=== PATIENT | male | born 1945 | race Caucasian/White ===

== ENCOUNTER 2020-11-16 20:50 | Emergency (ER) | payer OTHER ==
[~2020-11-16 20:50] MED LIST: ADVAIR 500-501 EACH INH; ASPIRIN325 MG PO; ATROVENT (00.2 MG/ML INH; BACLOFEN 10MG T10 MG PO; BRETHINE5 MG PO; BUPROPION PO; CERTAGEN1 EACH PO; CIPROFLOXACIN2.5 ML EYEBOTH; CLEOCIN300 MG PO; COZAAR 100MG T100 MG PO; DEPAKOTE250 MG PO; DUONEB 2.5-0.5M1 AMP INH; ELIQUIS2.5 MG PO; GLUCOTROL10 MG PO; K-TAB ER20 MEQ PO; LASIX40 MG PO; LEVAQUIN750 MG PO; LYRICA 50MG CAP50 MG PO; METOPROLOL SUCC50 MG PO; MOBIC7.5 MG PO; NEURONTIN 400M400 MG PO; NITROQUIK SL0.4 MG SL; NORCO 10-325 T1 EACH PO; PAXIL40 MG PO; PRAVACHOL40 MG PO; PREDNISONE 10MG10 MG PO; PREDNISONE 20MG20 MG PO; SINGULAIR10 MG PO; SPIRIVA 185 PUFFS/IN INH; TOPROL XL 50 MG50 MG PO; TYLENOL325 M1 PO; VANCOMYCIN1000 MG/VI IV; VENTOLIN HFA IN18 GM INH; WELLBUTRIN75 MG PO
[2020-11-16 22:29] LABS: BASOPHIL 0.4 % (0-2); EOSINOPHIL 4.2 % (0-7); HCT 42.1 % (42.0-52.0); HGB 13.7 g/dl (13.2-18.0); LYMPHOCYTE 20.4 % (15-48); MCH 29.1 pg (25.0-31.0); MCHC 32.5 g/dL (32.0-36.0); MCV 89.6 fL (78.0-100.0); MONOCYTE 9.3 % (0-12); NEUTROPHIL 65.4 % (41-80); NRBC 0; PLT 286 K/uL (150-400); RDW 12.9 % (11.5-14.0)
[2020-11-16 22:39] LABS: ALBUMIN 3.6 g/dL (3.4-5.0); BILIRUBIN - TOTAL 0.4 mg/dL (0.2-1.0); BUN/CREAT RATIO (CALC) 10.5 RATIO; CREATININE 0.76 mg/dL (0.67-1.17); POTASSIUM 3.8 mmol/L (3.5-5.1); TOTAL PROTEIN 7.6 g/dL (6.4-8.2)
[2020-11-17 00:31] LABS: BILIRUBIN NEGATIVE (NEGATIVE); BLOOD NEGATIVE Ery/uL (NEGATIVE); CLARITY CLEAR (CLEAR); COLOR YELLOW (YELLOW); GLUCOSE (U) 2+ mg/dL (NORMAL); LEUKOCYTES NEGATIVE Leu/uL (NEGATIVE); NITRITE NEGATIVE (NEGATIVE); PROTEIN 2+ mg/dL (NEGATIVE); UROBILINOGEN 0.2 mg/dL (0.2-1.0)
[2020-11-17 00:35] LABS: SQUAMOUS EPITHELIAL CELLS RARE; URINARY RBC RARE
[2020-11-17] MEDS ORDERED: PROTONIX 40MG T40 MG PO (03:03)
[2020-11-17] MEDS ORDERED: ONDANSETRON ODT4 MG SL (03:03)
== END 2020-11-17 03:22 | disposition home or self-care (01) ==
LOC: FER 20:50
PROVIDERS: Emergency Medicine Emergency Medical Services
DX: R11.2 Nausea with vomiting, unspecified (principal); R19.7 Diarrhea, unspecified; E11.9 Type 2 diabetes mellitus without complications; I10 Essential (primary) hypertension; J44.9 Chronic obstructive pulmonary disease, unspecified; Z88.0 Allergy status to penicillin; Z88.5 Allergy status to narcotic agent
CPT/HCPCS: 36415; 80053; 81001; 82150; 83690; 85025; 87045; 87046; 87205; 87449; J1940; J2354; J2405; J7030; Q9967

== ENCOUNTER 2021-02-02 21:20 | Day surgery (SDCO) | payer OTHER ==
[~2021-02-02] VITALS: Ht 175.3 cm; Wt 117.6 kg
[~2021-02-02 21:20] MED LIST changes: +ONDANSETRON ODT4 MG SL; +PROTONIX 40MG T40 MG PO
[2021-02-02 21:58] LABS: BASOPHIL 0.4 % (0-2); EOSINOPHIL 4.4 % (0-7); HCT 40.7 % (42.0-52.0); HGB 12.9 g/dl (13.2-18.0); LYMPHOCYTE 23.4 % (15-48); MCH 28.7 pg (25.0-31.0); MCHC 31.7 g/dL (32.0-36.0); MCV 90.4 fL (78.0-100.0); MONOCYTE 10.4 % (0-12); MPV 9.5 fL (6.0-9.5); NRBC 0; PLT 263 K/uL (150-400); RDW 14.4 % (11.5-14.0); WBC 10.7 K/uL (4.0-10.5)
[2021-02-02 22:15] LABS: ALBUMIN 3.6 g/dL (3.4-5.0); ALKALINE PHOSHATASE 96 U/L (46-116); ALT 17 U/L (16-63); AST 14 U/L (15-37); BILIRUBIN - TOTAL 0.3 mg/dL (0.2-1.0); BUN 30 mg/dL (7-18); BUN/CREAT RATIO (CALC) 12.8 RATIO; CHLORIDE 102 mmol/L (98-107); CO2 (BICARBONATE) 28 mmol/L (21-32); CREATININE 2.34 mg/dL (0.67-1.17); GLOBULIN (CALCULATION) 3.8 g/dL; GLUCOSE 125 mg/dL (74-106); POTASSIUM 3.6 mmol/L (3.5-5.1); TOTAL PROTEIN 7.4 g/dL (6.4-8.2)
[2021-02-02 23:35] LABS: AMPHETAMINES NEGATIVE (NEGATIVE); BARBITURATES NEGATIVE (NEGATIVE); ECSTASY (MDMA) NEGATIVE (NEGATIVE); MARIJUANA (THC) NEGATIVE (NEGATIVE); METHADONE NEGATIVE (NEGATIVE); OPIATES NEGATIVE (NEGATIVE); OXYCODONE NEGATIVE (NEGATIVE)
[2021-02-03 00:29] LABS: BILIRUBIN NEGATIVE (NEGATIVE); BLOOD NEGATIVE Ery/uL (NEGATIVE); CLARITY CLEAR (CLEAR); COLOR YELLOW (YELLOW); GLUCOSE (U) 3+ mg/dL (NORMAL); LEUKOCYTES NEGATIVE Leu/uL (NEGATIVE); NITRITE NEGATIVE (NEGATIVE); PROTEIN TRACE (LOW) mg/dL (NEGATIVE); SPECIFIC GRAVITY 1.025 (1.001-1.030); UROBILINOGEN 0.2 mg/dL (0.2-1.0); pH 5.5 (5.0-9.0)
[2021-02-03 05:40] LABS: BASOPHIL 0.6 % (0-2); EOSINOPHIL 5.2 % (0-7); HCT 39.9 % (42.0-52.0); HGB 12.5 g/dl (13.2-18.0); LYMPHOCYTE 26.9 % (15-48); MCH 28.3 pg (25.0-31.0); MCHC 31.3 g/dL (32.0-36.0); MCV 90.3 fL (78.0-100.0); MONOCYTE 11.3 % (0-12); MPV 9.7 fL (6.0-9.5); NEUTROPHIL 55.7 % (41-80); NRBC 0; PLT 227 K/uL (150-400); RBC 4.42 M/uL (4.70-6.00); RDW 14.2 % (11.5-14.0)
[2021-02-03 06:08] LABS: BUN/CREAT RATIO (CALC) 15.7 RATIO; CREATININE 1.59 mg/dL (0.67-1.17); MAGNESIUM 1.5 mg/dL (1.8-2.4); POTASSIUM 3.8 mmol/L (3.5-5.1)
[2021-02-03] MEDS ORDERED: ELIQUIS5 MG PO (17:51)
[2021-02-03] MEDS ORDERED: ASPIRIN EC81 MG PO (17:52)
[2021-02-03] MEDS ORDERED: DIPROLENE 0.05%15 GM TOP (17:53)
[2021-02-03] MEDS ORDERED: COMBIVENT RESPIM4 GM INH (17:53)
[2021-02-03] MEDS ORDERED: GLYBURIDE 5MG TA5 MG PO (17:54)
[2021-02-03] MEDS ORDERED: BRETHINE PO (17:55)
[2021-02-03] MEDS ORDERED: WELLBUTRIN XL150 MG PO (17:56)
[2021-02-03] MEDS ORDERED: LANTUS **100 UNITS/ SC (17:57)
[2021-02-03] MEDS ORDERED: NORVASC5 MG PO (17:58)
[2021-02-03] MEDS ORDERED: COZAAR100 MG PO (17:59)
[2021-02-03] MEDS ORDERED: MULTIPLE VITAM1 EACH PO (18:00)
[2021-02-03] MEDS ORDERED: LYRICA200 MG PO (18:01)
[2021-02-03] MEDS ORDERED: VICODIN 10/3251 EACH PO (18:01)
[2021-02-03] MEDS ORDERED: VENTOLIN (2.5 MG/3 M INH (18:02)
[2021-02-03] MEDS ORDERED: SPIRIVA RESPIMAT4 G1 INH (18:04)
[2021-02-03] MEDS ORDERED: FLONASE ALLER15.8 ML (18:05)
[2021-02-03] MEDS ORDERED: SINGULAIR10 MG PO (18:05)
[2021-02-03] MEDS ORDERED: PULMICORT0.5 MG/2 M NEB (18:07)
[2021-02-03] MEDS ORDERED: NITROQUIK SL0.4 MG SL (18:08)
[2021-02-03] MEDS ORDERED: PROTONIX 40MG T40 MG PO (18:10)
[2021-02-03] MEDS ORDERED: IPRAT-ALBUT 0.5-3 ML INH (18:10)
[2021-02-03] MEDS ORDERED: PLAVIX75 MG PO (18:10)
[2021-02-03] MEDS ORDERED: LIPITOR40 M1 PO (18:11)
[2021-02-03] MEDS ORDERED: HCTZ12.5 MG PO (18:11)
[2021-02-03] MEDS ORDERED: RANEXA500 MG PO (18:13)
[2021-02-03] MEDS ORDERED: COLESTID1 GM PO (18:15)
[2021-02-03 20:36] LABS: HCT 41.7 % (42.0-52.0); HGB 12.9 g/dl (13.2-18.0); MCH 28.3 pg (25.0-31.0); MCHC 30.9 g/dL (32.0-36.0); MCV 91.4 fL (78.0-100.0); MPV 9.4 fL (6.0-9.5); RBC 4.56 M/uL (4.70-6.00); RDW 14.3 % (11.5-14.0); WBC 8.3 K/uL (4.0-10.5)
[2021-02-03 21:07] LABS: ALBUMIN 3.3 g/dL (3.4-5.0); BILIRUBIN - TOTAL 0.3 mg/dL (0.2-1.0); BUN/CREAT RATIO (CALC) 15.6 RATIO; CREATININE 0.96 mg/dL (0.67-1.17); MAGNESIUM 1.6 mg/dL (1.8-2.4); TOTAL PROTEIN 7.3 g/dL (6.4-8.2)
[2021-02-04 04:05] LABS: BASOPHIL 0.6 % (0-2); EOSINOPHIL 5.5 % (0-7); HGB 12.1 g/dl (13.2-18.0); LYMPHOCYTE 24.8 % (15-48); MCH 28.3 pg (25.0-31.0); MCV 91.3 fL (78.0-100.0); MONOCYTE 11.1 % (0-12); MPV 9.9 fL (6.0-9.5); NEUTROPHIL 57.9 % (41-80); NRBC 0; PLT 245 K/uL (150-400); RBC 4.27 M/uL (4.70-6.00); RDW 14.1 % (11.5-14.0); WBC 8.4 K/uL (4.0-10.5)
[2021-02-04 04:23] LABS: ALBUMIN 3.1 g/dL (3.4-5.0); BILIRUBIN - TOTAL 0.5 mg/dL (0.2-1.0); BUN/CREAT RATIO (CALC) 13.3 RATIO; CREATININE 0.83 mg/dL (0.67-1.17); GLOBULIN (CALCULATION) 3.8 g/dL; MAGNESIUM 1.7 mg/dL (1.8-2.4); PHOSPHORUS 2.7 mg/dL (2.6-4.7); POTASSIUM 3.6 mmol/L (3.5-5.1); TOTAL PROTEIN 6.9 g/dL (6.4-8.2)
[2021-02-05 04:17] LABS: BASOPHIL 0.5 % (0-2); EOSINOPHIL 3.9 % (0-7); HCT 37.5 % (42.0-52.0); LYMPHOCYTE 22.2 % (15-48); MCH 28.2 pg (25.0-31.0); MCV 88.2 fL (78.0-100.0); MONOCYTE 10.7 % (0-12); NEUTROPHIL 62.5 % (41-80); NRBC 0; PLT 249 K/uL (150-400); RBC 4.25 M/uL (4.70-6.00); RDW 13.6 % (11.5-14.0); WBC 8.5 K/uL (4.0-10.5)
[2021-02-05 04:36] LABS: BUN/CREAT RATIO (CALC) 11.5 RATIO; CREATININE 0.61 mg/dL (0.67-1.17); POTASSIUM 3.3 mmol/L (3.5-5.1)
--- NOTE | 2021-02-05 14:12 | NUR ---
Patient expressed wishes to go to rehab nursing facility to [place]. Spoke with patient, we does have walker at home, spouse who cannot help due to illness/weakness, and a grand daughter that is available to help. Explained therapy recommendations for [facility] with PT to patient. Patient still would like rehab, says he is afraid he will fall. Does not have a preference on facilities.
[2021-02-06 06:20] LABS: BASOPHIL 0.3 % (0-2); EOSINOPHIL 3.2 % (0-7); HCT 39.2 % (42.0-52.0); HGB 12.6 g/dl (13.2-18.0); LYMPHOCYTE 17.2 % (15-48); MCH 27.9 pg (25.0-31.0); MCHC 32.1 g/dL (32.0-36.0); MCV 86.9 fL (78.0-100.0); MONOCYTE 11.7 % (0-12); MPV 10.4 fL (6.0-9.5); NEUTROPHIL 67.4 % (41-80); NRBC 0; PLT 247 K/uL (150-400); RBC 4.51 M/uL (4.70-6.00); RDW 13.5 % (11.5-14.0)
[2021-02-06 06:51] LABS: BUN/CREAT RATIO (CALC) 10.8 RATIO; CREATININE 0.65 mg/dL (0.67-1.17); POTASSIUM 3.2 mmol/L (3.5-5.1)
[2021-02-06 14:26] LABS: FOLIC ACID (SERUM) 29.2 ng/mL (8.6-58.9); FT4 (FREE T4) 1.2 ng/dL (0.76-1.46)
--- NOTE | 2021-02-06 15:51 | NUR ---
02/06/21 Mr. Perrin shares a home with his granddaughter. He has a rw, 02, s. chair, and 3in1. He does not have HH services. His granddaughter cleaning and prepares meals. Mr. Perrin has request SNF for short term ronal.. Referrals have been made to [facility] and [facility] per his request.
--- NOTE | 2021-02-07 04:10 | NUR ---
Martha Ledezma APRN notified of bladder scan results of 555mL. No new orders at this time.
[2021-02-07 06:42] LABS: BUN/CREAT RATIO (CALC) 13.2 RATIO; CREATININE 1.29 mg/dL (0.67-1.17); MAGNESIUM 1.4 mg/dL (1.8-2.4); POTASSIUM 3.6 mmol/L (3.5-5.1)
--- NOTE | 2021-02-07 14:47 | NUR ---
9105 PATIENT HAS NOT VOIDED THIS SHIFT, PATIENT STATED HE DID NOT FEEL LIKE HE NEEDED TO VOID BUT WAS ABLE TO VOID 100 ML. BLADDER SCAN COMPLETED, 343 ML NOTED IN BLADDER. DR KELLEY NOTIFIED AND STATED "OK, WE'LL KEEP AN EYE ON IT."
[2021-02-07 15:01] LABS: BILIRUBIN 1+ mg/dL (NEGATIVE); BLOOD NEGATIVE Ery/uL (NEGATIVE); CLARITY CLEAR (CLEAR); GLUCOSE (U) 3+ mg/dL (NORMAL); LEUKOCYTES NEGATIVE Leu/uL (NEGATIVE); NITRITE NEGATIVE (NEGATIVE); PROTEIN 1+ mg/dL (NEGATIVE); SPECIFIC GRAVITY >=1.030 (1.001-1.030); UROBILINOGEN 0.2 mg/dL (0.2-1.0); pH 5.5 (5.0-9.0)
[2021-02-07 15:19] LABS: COLOR AMBER (YELLOW)
[2021-02-07 15:21] LABS: SQUAMOUS EPITHELIAL CELLS RARE
--- NOTE | 2021-02-07 15:47 | NUR ---
02/07/21 [facility] has accepted Mr. Perrin pending insurance approval.
[2021-02-08 06:59] LABS: BASOPHIL 0.6 % (0-2); EOSINOPHIL 3.6 % (0-7); HCT 37.6 % (42.0-52.0); HGB 12.2 g/dl (13.2-18.0); LYMPHOCYTE 18.2 % (15-48); MCH 28.2 pg (25.0-31.0); MCHC 32.4 g/dL (32.0-36.0); MONOCYTE 11.8 % (0-12); MPV 9.7 fL (6.0-9.5); NEUTROPHIL 65.4 % (41-80); NRBC 0; PLT 293 K/uL (150-400); RBC 4.32 M/uL (4.70-6.00); RDW 13.6 % (11.5-14.0)
[2021-02-08 07:17] LABS: BUN/CREAT RATIO (CALC) 20.9 RATIO; CREATININE 0.91 mg/dL (0.67-1.17); MAGNESIUM 1.7 mg/dL (1.8-2.4); POTASSIUM 3.5 mmol/L (3.5-5.1)
--- NOTE | 2021-02-08 16:53 | NUR ---
02/08/21 [facility] has approved patient for admission today. Tano, granddaughter, , has agreed to provide transportation. Report given to MS kodi Luna and Dr. Cunningham.
[2021-02-08] MEDS ORDERED: TAMSULOSIN HCL0.4 MG PO (18:01)
[2021-02-08] MEDS ORDERED: DOXYCYCLINE MO100 M1 PO (18:01)
--- NOTE | 2021-02-08 20:51 | NUR ---
2020 FAMILY MEMBER IN ROOM 203 REPORTED THAT HE WAS IN THE FLOOR. PATIENT FOUND SITTING IN THE FLOOR, DENIES ANY INJURY, NO INJURIES NOTED. DR. KELLEY AND Cassidy CRANE APRN NOTIFIED OF FALL, NEW ORDERS REC'D. GRANDDAUGHTER NOTIFIED.
== END 2021-02-08 11:00 ==
LOC: FER 21:20 → FMS 02-03 01:28
PROVIDERS: Emergency Medicine; Internal Medicine; Nurse Practitioner; ADMIT Internal Medicine
DX: G93.41 Metabolic encephalopathy (principal); N17.9 Acute kidney failure, unspecified; N40.1 Benign prostatic hyperplasia with lower urinary tract symptoms; R33.8 Other retention of urine; R53.1 Weakness; J44.9 Chronic obstructive pulmonary disease, unspecified; I10 Essential (primary) hypertension; I25.10 Atherosclerotic heart disease of native coronary artery without angina pectoris; E11.9 Type 2 diabetes mellitus without complications; G47.33 Obstructive sleep apnea (adult) (pediatric); E78.5 Hyperlipidemia, unspecified; Z88.0 Allergy status to penicillin; Z91.013 Allergy to seafood; Z91.012 Allergy to eggs; Z91.030 Bee allergy status; Z88.5 Allergy status to narcotic agent; Z99.81 Dependence on supplemental oxygen; Z20.822 Contact with and (suspected) exposure to COVID-19; Z86.73 Personal history of transient ischemic attack (TIA), and cerebral infarction without residual deficits; Z96.653 Presence of artificial knee joint, bilateral; Z90.49 Acquired absence of other specified parts of digestive tract; Z87.891 Personal history of nicotine dependence
CPT/HCPCS: 36415; 36600; 70450; 70551; 71045; 71250; 72072; 72110; 72170; 80048; 80053; 80305; 81001; 81003; 82607; 82746; 82803; 82962; 83540; 83550; 83605; 83735; 84100; 84145; 84439; 84443; 84484; 85025; 87088; 93005; 94640; 94660; 94760; 94762; 97116; 97161; 97166; 97530; 97530-GP; 97535; G0378; G0480; J1650; J2916; J3475; J7030; J7050; U0002

== ENCOUNTER 2021-05-11 01:49 | Inpatient (IN) | payer OTHER ==
[~2021-05-11] VITALS: Ht 175.3 cm; Wt 113.5 kg
[~2021-05-11 01:49] MED LIST changes: +ASPIRIN EC81 MG PO; +BRETHINE PO; +COLESTID1 GM PO; +COMBIVENT RESPIM4 GM INH; +COZAAR100 MG PO; +DIPROLENE 0.05%15 GM TOP; +DOXYCYCLINE MO100 M1 PO; +ELIQUIS5 MG PO; +FLONASE ALLER15.8 ML; +GLYBURIDE 5MG TA5 MG PO; +HCTZ12.5 MG PO; +IPRAT-ALBUT 0.5-3 ML INH; +LANTUS **100 UNITS/ SC; +LIPITOR40 M1 PO; +LYRICA200 MG PO; +MULTIPLE VITAM1 EACH PO; +NORVASC5 MG PO; +PLAVIX75 MG PO; +PULMICORT0.5 MG/2 M NEB; +RANEXA500 MG PO; +SPIRIVA RESPIMAT4 G1 INH; +TAMSULOSIN HCL0.4 MG PO; +VENTOLIN (2.5 MG/3 M INH; +VICODIN 10/3251 EACH PO; +WELLBUTRIN XL150 MG PO
[2021-05-11 02:52] LABS: BASOPHIL 0.5 % (0-2); EOSINOPHIL 1.9 % (0-7); HGB 10.2 g/dl (13.2-18.0); LYMPHOCYTE 27.2 % (15-48); MCH 28.7 pg (25.0-31.0); MCHC 31.9 g/dL (32.0-36.0); MCV 89.9 fL (78.0-100.0); MONOCYTE 9.9 % (0-12); MPV 10.6 fL (6.0-9.5); NRBC 0; PLT 289 K/uL (150-400); RBC 3.56 M/uL (4.70-6.00); RDW 13.2 % (11.5-14.0); WBC 9.2 K/uL (4.0-10.5)
[2021-05-11 02:57] LABS: INR 1.1 (0.9-1.2); PROTHROMBIN TIME 13.6 SECONDS (11.8-13.4); PTT 28.5 SECONDS (24.4-34.7)
[2021-05-11 02:58] LABS: D-DIMER 0.49 ug/mLFEU (0.00-0.41)
[2021-05-11 03:03] LABS: ALBUMIN 3.4 g/dL (3.4-5.0); BILIRUBIN - TOTAL 0.3 mg/dL (0.2-1.0); BUN/CREAT RATIO (CALC) 64.6 RATIO; CREATININE 0.99 mg/dL (0.67-1.17); GLOBULIN (CALCULATION) 4.1 g/dL; POTASSIUM 3.9 mmol/L (3.5-5.1); TOTAL PROTEIN 7.5 g/dL (6.4-8.2)
[2021-05-11 03:31] LABS: LACTIC ACID 1.2 mmol/L (0.4-1.9)
[2021-05-11 05:59] LABS: HGB 9.3 g/dL (13.2-18.0)
[2021-05-11 16:09] LABS: HCT 28.2 % (42.0-52.0); HGB 9.1 g/dl (13.2-18.0); MCH 28.9 pg (25.0-31.0); MCHC 32.3 g/dL (32.0-36.0); MCV 89.5 fL (78.0-100.0); MPV 9.9 fL (6.0-9.5); RBC 3.15 M/uL (4.70-6.00); RDW 13.6 % (11.5-14.0); WBC 6.7 K/uL (4.0-10.5)
--- NOTE | 2021-05-11 16:48 | NUR ---
FAMILY CALLED ASKING ABOUT PATIENT PROCEDURE, THEY STATED DOCTOR HAD NOT TALKED TO THEM YET, INFORMED THEM WILL CALL DR MORA AND LET H[facility] KNOW OF THEIR QUESTIONS, CALL TO DR MORA AND HE STATED HE WOULD CALL FAMILY AFTER TALKING TO PATIENT HERE [facility]
--- NOTE | 2021-05-11 22:18 | NUR ---
PT HAS DM DIAGNOSIS, BG IS 219, ASSISTANT DIRECTOR OF ADMISSIONS IN HOUSE NOTIFIED. PT IS TO AVOID [facility] S[facility] INSULIN AT THIS TIME PER PTS
[2021-05-12 05:50] LABS: BASOPHIL 0.7 % (0-2); EOSINOPHIL 6.3 % (0-7); HCT 26.1 % (42.0-52.0); HGB 8.4 g/dl (13.2-18.0); LYMPHOCYTE 28.3 % (15-48); MCH 29.3 pg (25.0-31.0); MCHC 32.2 g/dL (32.0-36.0); MCV 90.9 fL (78.0-100.0); MONOCYTE 10.4 % (0-12); MPV 9.6 fL (6.0-9.5); NEUTROPHIL 53.9 % (41-80); NRBC 0; PLT 220 K/uL (150-400); RBC 2.87 M/uL (4.70-6.00); RDW 13.4 % (11.5-14.0); WBC 6.8 K/uL (4.0-10.5)
[2021-05-12 06:04] LABS: CREATININE 0.84 mg/dL (0.67-1.17); POTASSIUM 3.8 mmol/L (3.5-5.1)
--- NOTE | 2021-05-12 12:19 | NUR ---
MET WITH PT REGARDING RESOURCES. PT. HAS A ROLLING WALKER, SHOWER CHAIR AND 3/. HE ALSO HAS O2 AT 2 LITERS. PT. DOES NOT HAVE HH. HE RESIDES WITH HIS DAUGHTER AND GRANDDAUGHTER.
[2021-05-13 06:45] LABS: BASOPHIL 0.6 % (0-2); EOSINOPHIL 7.5 % (0-7); HGB 8.2 g/dl (13.2-18.0); LYMPHOCYTE 24.3 % (15-48); MCH 28.9 pg (25.0-31.0); MCHC 31.5 g/dL (32.0-36.0); MCV 91.5 fL (78.0-100.0); MONOCYTE 9.8 % (0-12); MPV 10.1 fL (6.0-9.5); NEUTROPHIL 57.6 % (41-80); NRBC 0; PLT 238 K/uL (150-400); RBC 2.84 M/uL (4.70-6.00); RDW 13.2 % (11.5-14.0); WBC 6.5 K/uL (4.0-10.5)
[2021-05-13 06:50] LABS: BUN/CREAT RATIO (CALC) 17.1 RATIO; CREATININE 0.82 mg/dL (0.67-1.17); POTASSIUM 3.5 mmol/L (3.5-5.1)
[2021-05-14 08:57] LABS: HCT 25.9 % (42.0-52.0); HGB 8.2 g/dl (13.2-18.0); MCH 28.9 pg (25.0-31.0); MCHC 31.7 g/dL (32.0-36.0); MCV 91.2 fL (78.0-100.0); MPV 9.4 fL (6.0-9.5); RBC 2.84 M/uL (4.70-6.00); RDW 13.4 % (11.5-14.0); WBC 7.4 K/uL (4.0-10.5)
[2021-05-15 05:49] LABS: BASOPHIL 0.4 % (0-2); EOSINOPHIL 7.8 % (0-7); HCT 27.1 % (42.0-52.0); HGB 8.8 g/dl (13.2-18.0); LYMPHOCYTE 30.6 % (15-48); MCH 29.4 pg (25.0-31.0); MCHC 32.5 g/dL (32.0-36.0); MCV 90.6 fL (78.0-100.0); MONOCYTE 12.1 % (0-12); MPV 9.9 fL (6.0-9.5); NEUTROPHIL 48.8 % (41-80); NRBC 0; PLT 251 K/uL (150-400); RBC 2.99 M/uL (4.70-6.00); RDW 13.4 % (11.5-14.0); WBC 6.9 K/uL (4.0-10.5)
[2021-05-15 06:23] LABS: BUN/CREAT RATIO (CALC) 10.5 RATIO; CREATININE 0.86 mg/dL (0.67-1.17); POTASSIUM 3.6 mmol/L (3.5-5.1)
[2021-05-15] MEDS ORDERED: PROTONIX 40MG T40 MG PO (14:22)
== END 2021-05-15 15:39 | disposition home or self-care (01) | DRG 375 ==
LOC: FER 01:49 → FMS 07:29
PROVIDERS: Emergency Medicine Emergency Medical Services; Student in an Organized Health Care Education/Training Program; ADMIT Internal Medicine
PROC: 0DJ08ZZ Inspection of Upper Intestinal Tract, Via Natural or Artificial Opening Endoscopic (ICD-10-PCS; 2021-05-11)
PROC: 30233N1 Transfusion of Nonautologous Red Blood Cells into Peripheral Vein, Percutaneous Approach (ICD-10-PCS; principal; 2021-05-14)
PROC: 0DB38ZX Excision of Lower Esophagus, Via Natural or Artificial Opening Endoscopic, Diagnostic (ICD-10-PCS; 2021-05-15 13:00)
DX: C15.5 Malignant neoplasm of lower third of esophagus (principal); D62 Acute posthemorrhagic anemia; K92.1 Melena; R04.2 Hemoptysis; I13.0 Hypertensive heart and chronic kidney disease with heart failure and stage 1 through stage 4 chronic kidney disease, or unspecified chronic kidney disease; D68.32 Hemorrhagic disorder due to extrinsic circulating anticoagulants; R59.0 Localized enlarged lymph nodes; E11.9 Type 2 diabetes mellitus without complications; Z20.822 Contact with and (suspected) exposure to COVID-19; I11.0 Hypertensive heart disease with heart failure; I50.9 Heart failure, unspecified; E78.5 Hyperlipidemia, unspecified; I25.10 Atherosclerotic heart disease of native coronary artery without angina pectoris; N18.9 Chronic kidney disease, unspecified; J44.9 Chronic obstructive pulmonary disease, unspecified; R91.1 Solitary pulmonary nodule; Z96.653 Presence of artificial knee joint, bilateral; Z99.81 Dependence on supplemental oxygen; Z79.01 Long term (current) use of anticoagulants; Z79.82 Long term (current) use of aspirin; Z79.899 Other long term (current) drug therapy; Z79.02 Long term (current) use of antithrombotics/antiplatelets; Z79.51 Long term (current) use of inhaled steroids; Z79.4 Long term (current) use of insulin; Z88.0 Allergy status to penicillin; Z88.5 Allergy status to narcotic agent; Z91.012 Allergy to eggs; Z91.030 Bee allergy status; Z90.49 Acquired absence of other specified parts of digestive tract; Z98.890 Other specified postprocedural states; Z87.891 Personal history of nicotine dependence; Z83.3 Family history of diabetes mellitus; Z82.49 Family history of ischemic heart disease and other diseases of the circulatory system; Z86.73 Personal history of transient ischemic attack (TIA), and cerebral infarction without residual deficits; Z91.013 Allergy to seafood
CPT/HCPCS: 36415; 36430; 71045; 71275; 80048; 80053; 82150; 83605; 83690; 84484; 85014; 85018; 85025; 85379; 85610; 85730; 86850; 86900; 86901; 86922; 87040; 88305; 88341; 88342; 93005; 94010; 94640; C9113; J1815; J2704; J2916; J3480; J7030; J7050; J7120; P9016; Q9967; U0002

== ENCOUNTER → 2021-05-31 | Day surgery (SDC) | payer OTHER ==
[~2021-05-31] VITALS: Ht 175.3 cm; Wt 105.3 kg
[~2021-05-31] MED LIST changes: +ANTIVERT12.5 MG PO; +CYCLOBENZAPRINE10 MG PO; +FLOVENT HFA12 GM INH; +GLIPIZIDE ER10 MG PO; +GLUMETZA1000 MG PO; +KEFLEX250 MG PO; +LASIX20 MG PO; +NOVOLOG FL100 UNIT/1 IJ; +ONDANSETRON ODT4 MG PO; +UROCIT-K10 MEQ PO
[2021-05-31 09:55] LABS: BUN/CREAT RATIO (CALC) 18.6 RATIO; CREATININE 1.29 mg/dL (0.67-1.17); POTASSIUM 4.4 mmol/L (3.5-5.1)
== END | disposition home or self-care (01) ==
LOC: FAS 08:21
PROVIDERS: Anesthesiology
DX: C15.9 Malignant neoplasm of esophagus, unspecified (principal); I11.0 Hypertensive heart disease with heart failure; I50.9 Heart failure, unspecified; E11.9 Type 2 diabetes mellitus without complications; E78.00 Pure hypercholesterolemia, unspecified; J45.909 Unspecified asthma, uncomplicated; J44.9 Chronic obstructive pulmonary disease, unspecified; I25.10 Atherosclerotic heart disease of native coronary artery without angina pectoris; G47.30 Sleep apnea, unspecified; K21.9 Gastro-esophageal reflux disease without esophagitis; E78.5 Hyperlipidemia, unspecified; F41.9 Anxiety disorder, unspecified; F32.A Depression, unspecified; I48.91 Unspecified atrial fibrillation; Z88.0 Allergy status to penicillin; Z88.5 Allergy status to narcotic agent; Z88.8 Allergy status to other drugs, medicaments and biological substances; Z79.01 Long term (current) use of anticoagulants; Z79.2 Long term (current) use of antibiotics; Z79.4 Long term (current) use of insulin; Z79.82 Long term (current) use of aspirin; Z79.899 Other long term (current) drug therapy; Z99.89 Dependence on other enabling machines and devices; Z86.73 Personal history of transient ischemic attack (TIA), and cerebral infarction without residual deficits; Z72.89 Other problems related to lifestyle; Z87.891 Personal history of nicotine dependence
CPT/HCPCS: 36415; 71045; 76000; 80048; 82962; C1788; J1644; J2001; J2250; J2370; J2704; J3370; J7050; J7120

== ENCOUNTER 2021-07-29 21:30 | Inpatient (IN) | payer OTHER ==
[~2021-07-29] VITALS: Ht 175.3 cm; Wt 104.8 kg
[2021-07-29 22:49] LABS: BASOPHIL 0.8 % (0-2); EOSINOPHIL 3.8 % (0-7); HGB 11.4 g/dl (13.2-18.0); LYMPHOCYTE 10.8 % (15-48); MCH 28.8 pg (25.0-31.0); MCHC 33.5 g/dL (32.0-36.0); MCV 85.9 fL (78.0-100.0); MONOCYTE 22.3 % (0-12); MPV 9.5 fL (6.0-9.5); NRBC 0; PLT 162 K/uL (150-400); RBC 3.96 M/uL (4.70-6.00); RDW 17.3 % (11.5-14.0)
[2021-07-29 22:53] LABS: NEUTROPHIL 60.8 % (41-80); WBC 1.3 K/uL (4.0-10.5)
[2021-07-29 23:09] LABS: ALBUMIN 3.1 g/dL (3.4-5.0); BILIRUBIN - TOTAL 0.3 mg/dL (0.2-1.0); BUN/CREAT RATIO (CALC) 19.8 RATIO; CREATININE 0.81 mg/dL (0.67-1.17); GLOBULIN (CALCULATION) 3.5 g/dL; POTASSIUM 3.3 mmol/L (3.5-5.1); TOTAL PROTEIN 6.6 g/dL (6.4-8.2)
[2021-07-29 23:15] LABS: LACTIC ACID 1.3 mmol/L (0.4-1.9)
[2021-07-30 00:10] LABS: INFLUENZA A NAA NEGATIVE (NEGATIVE)
[2021-07-30 00:12] LABS: CORONAVIRUS 2019 SARS-COV-2 POSITIVE (NEGATIVE)
[2021-07-30 07:54] LABS: INR 0.97 (0.9-1.2); PROTHROMBIN TIME 12.3 SECONDS (11.8-13.4); PTT 26.8 SECONDS (24.4-34.7)
[2021-07-30 07:55] LABS: D-DIMER 1.8 ug/mLFEU (0.00-0.41)
[2021-07-30 08:00] LABS: BASOPHIL 0.9 % (0-2); EOSINOPHIL 2.7 % (0-7); HCT 32.3 % (42.0-52.0); HGB 11.1 g/dl (13.2-18.0); LYMPHOCYTE 7.3 % (15-48); MCH 28.8 pg (25.0-31.0); MCHC 34.4 g/dL (32.0-36.0); MCV 83.7 fL (78.0-100.0); MONOCYTE 26.4 % (0-12); MPV 9.6 fL (6.0-9.5); NEUTROPHIL 58.2 % (41-80); NRBC 0; PLT 138 K/uL (150-400); RBC 3.86 M/uL (4.70-6.00); RDW 17.3 % (11.5-14.0)
[2021-07-30 08:04] LABS: WBC 1.1 K/uL (4.0-10.5)
[2021-07-30 08:05] LABS: LYMPHOCYTE(M) 10 % (15-48); METAMYELOCYTE 20; MYELOCYTE 10; NEUTROPHILS(M) 60 % (41-80); TOTAL CELL COUNT 10
[2021-07-30 08:06] LABS: PLATELET ESTIMATE NORMAL; PLATELET MORPHOLOGY NORMAL
[2021-07-30 08:10] LABS: BUN/CREAT RATIO (CALC) 20.9 RATIO; C-REACTIVE PROTEIN 4.4 mg/dL (<=0.90); CREATININE 0.67 mg/dL (0.67-1.17); MAGNESIUM 1.4 mg/dL (1.8-2.4); POTASSIUM 3.2 mmol/L (3.5-5.1)
[2021-07-30] MEDS ORDERED: REMERON15 MG PO (08:20)
[2021-07-30] MEDS ORDERED: ARICEPT 5MG TABL5 MG PO (08:20)
[2021-07-30] MEDS ORDERED: JARDIANCE25 MG PO (08:20)
[2021-07-30] MEDS ORDERED: TERBUTALINE PO (08:21)
[2021-07-30 18:56] LABS: BASOPHIL 0.8 % (0-2); EOSINOPHIL 4.1 % (0-7); HCT 28.7 % (42.0-52.0); HGB 9.7 g/dl (13.2-18.0); MCH 29.3 pg (25.0-31.0); MCHC 33.8 g/dL (32.0-36.0); MCV 86.7 fL (78.0-100.0); MONOCYTE 19.7 % (0-12); MPV 9.2 fL (6.0-9.5); NEUTROPHIL 65.6 % (41-80); NRBC 0; PLT 131 K/uL (150-400); RBC 3.31 M/uL (4.70-6.00); RDW 17.2 % (11.5-14.0); RETICULOCYTE COUNT 0.5 % (1.0-2.0)
[2021-07-30 19:00] LABS: WBC 1.2 K/uL (4.0-10.5)
[2021-07-30 19:30] LABS: IRON % SATURATION 12.8 %SAT (20-50)
[2021-07-30 19:49] LABS: BUN/CREAT RATIO (CALC) 16.2 RATIO; C-REACTIVE PROTEIN 4.1 mg/dL (<=0.90); CREATININE 0.74 mg/dL (0.67-1.17); FOLIC ACID (SERUM) 18.9 ng/mL (8.6-58.9); MAGNESIUM 1.4 mg/dL (1.8-2.4); POTASSIUM 3.3 mmol/L (3.5-5.1)
[2021-07-31 06:26] LABS: BASOPHIL 0 % (0-2); EOSINOPHIL 1.7 % (0-7); HCT 28.8 % (42.0-52.0); HGB 9.7 g/dl (13.2-18.0); LYMPHOCYTE 4.2 % (15-48); MCH 29.2 pg (25.0-31.0); MCHC 33.7 g/dL (32.0-36.0); MCV 86.7 fL (78.0-100.0); MONOCYTE 12.1 % (0-12); MPV 9.3 fL (6.0-9.5); NEUTROPHIL 81.2 % (41-80); PLT 128 K/uL (150-400); RBC 3.32 M/uL (4.70-6.00); RDW 17.5 % (11.5-14.0)
[2021-07-31 06:30] LABS: WBC 2.4 K/uL (4.0-10.5)
[2021-07-31 06:53] LABS: ALBUMIN 2.5 g/dL (3.4-5.0); BILIRUBIN - TOTAL 0.3 mg/dL (0.2-1.0); BUN/CREAT RATIO (CALC) 12.9 RATIO; C-REACTIVE PROTEIN 4.3 mg/dL (<=0.90); CREATININE 0.7 mg/dL (0.67-1.17); GLOBULIN (CALCULATION) 2.6 g/dL; MAGNESIUM 1.2 mg/dL (1.8-2.4); PHOSPHORUS 2.8 mg/dL (2.6-4.7); POTASSIUM 3.3 mmol/L (3.5-5.1); TOTAL PROTEIN 5.1 g/dL (6.4-8.2)
[2021-07-31 07:54] LABS: BAND 32 % (0-10); BASOPHIL(M) 2 % (0-2); EOSINOPHIL(M) 2 % (0-7); LYMPHOCYTE(M) 4 % (15-48); MONOCYTE(M) 10 % (0-12); NEUTROPHILS(M) 48 % (41-80); NRBC 0; PLATELET ESTIMATE DECREASED; TOTAL CELL COUNT 100; VARIANT LYMPHOCYTE 2
[2021-07-31 07:56] LABS: PLATELET MORPHOLOGY NORMAL
[2021-07-31 07:57] LABS: ELLIPTOCYTES (OVALOCYTES) 1+
--- NOTE | 2021-07-31 17:26 | NUR ---
RAPID RESPONSE CALLED IN MRI. PATIENT WAS IN WHEELCHAIR, IN [place] UPON MY ARRIVAL. PATIENT WAS MATHUR IN COLOR AND NOT RESPONDING. DR MALONE FROM THE ER RESPONDED TO THE RAPID WELL, DR MALONE ABLE TO PALPATE PULSE. DR MALONE ORDERED TO DO CT OF HEAD. PATIENTS BLOOD SUGAR CHECKED, BLOOD GLUCOSE 102. PATIENT PLACED ON TELE MONITOR, BP INITALLY WHILE PATIENT STILL SITTING IN THE WHEELCHAIR 78/30, HR 60. PATIENT PLACED ONTO CT TABLE, BP AT THIS TIME 98/60. PATIENT ABLE TO ANSWER TO VERBAL QUESTIONS, AND RESPONDED THAT HE WAS "AT [place]." WILL TRANSPORT PATIENT BACK TO [place] VIA ER STRETCHER AND ON PERCOLATOR OPERATOR. DR KELLEY NOTIFIED OF EVENT AND WILL ASSESS PATIENT WHEN HE RETURNS TO THE FLOOR. PRIMARY RN DEEPA GIVEN REPORT.
--- NOTE | 2021-07-31 18:39 | NUR ---
1745 RETURNED BACK TO THE ROOM FROM MRI, COLOR BETTER AND NOT CLAMMY AND SWEATY FOLLOWS COMMANDS AND B/P 122/[address] KELLEY AT THE BEDSIDE AND TALKING TO THE PATIENT AND NEW ORDERS TO RESTART THE IV FLUIDS AND MONITOR FOR ANY MORE DECREASED BLOOD PRESSURES.
[2021-08-02 04:41] LABS: BASOPHIL 0.4 % (0-2); EOSINOPHIL 1.2 % (0-7); HCT 28.9 % (42.0-52.0); HGB 9.5 g/dl (13.2-18.0); LYMPHOCYTE 5.2 % (15-48); MCH 28.5 pg (25.0-31.0); MCHC 32.9 g/dL (32.0-36.0); MCV 86.8 fL (78.0-100.0); MONOCYTE 21.8 % (0-12); MPV 9.6 fL (6.0-9.5); NEUTROPHIL 69.4 % (41-80); NRBC 0; PLT 141 K/uL (150-400); RBC 3.33 M/uL (4.70-6.00); RDW 18.1 % (11.5-14.0)
[2021-08-02 04:43] LABS: WBC 2.5 K/uL (4.0-10.5)
[2021-08-02 04:52] LABS: CREATININE 0.67 mg/dL (0.67-1.17); POTASSIUM 3.8 mmol/L (3.5-5.1)
[2021-08-02 20:14] LABS: BILIRUBIN NEGATIVE (NEGATIVE); BLOOD NEGATIVE Ery/uL (NEGATIVE); CLARITY CLEAR (CLEAR); COLOR YELLOW (YELLOW); GLUCOSE (U) NORMAL (NORMAL); LEUKOCYTES NEGATIVE Leu/uL (NEGATIVE); NITRITE NEGATIVE (NEGATIVE); PROTEIN NEGATIVE (NEGATIVE); SPECIFIC GRAVITY >=1.030 (1.001-1.030); UROBILINOGEN 0.2 mg/dL (0.2-1.0); pH 5.5 (5.0-9.0)
--- NOTE | 2021-08-03 14:57 | NUR ---
08/03/21 Mr. Perrin lives at home with his spouse and granddaughter. He has 02 at 2 L from [employer], portable tanks, , 3in1, and built-in shower seat. Mr. Perrin is not interested in services at discharge. PLease notify [facility] of increase in 02 as appropriate if patient discharged over the weekend.
[2021-08-04 07:52] LABS: BASOPHIL 0.8 % (0-2); EOSINOPHIL 0 % (0-7); LYMPHOCYTE 6.7 % (15-48); MCH 28.8 pg (25.0-31.0); MCHC 33.3 g/dL (32.0-36.0); MCV 86.4 fL (78.0-100.0); MPV 9.7 fL (6.0-9.5); NEUTROPHIL 45.5 % (41-80); NRBC 0; PLT 169 K/uL (150-400); RBC 3.82 M/uL (4.70-6.00); RDW 18.4 % (11.5-14.0); WBC 2.4 K/uL (4.0-10.5)
[2021-08-04 07:53] LABS: MONOCYTE 38.2 % (0-12)
[2021-08-04 08:07] LABS: BUN/CREAT RATIO (CALC) 17.9 RATIO; CREATININE 0.67 mg/dL (0.67-1.17); POTASSIUM 4.4 mmol/L (3.5-5.1)
--- NOTE | 2021-08-05 16:53 | NUR ---
BETADINE APPLIED TO HEELS, JULIEN WRAPS REAPPLIED AND LEGS ELEVATED OFF PILLOWS WHILE PATIENT IN CHAIR
[2021-08-06 07:00] LABS: BASOPHIL 0.9 % (0-2); EOSINOPHIL 0 % (0-7); HCT 35.4 % (42.0-52.0); HGB 11.7 g/dl (13.2-18.0); LYMPHOCYTE 10.1 % (15-48); MCH 28.5 pg (25.0-31.0); MCHC 33.1 g/dL (32.0-36.0); MCV 86.3 fL (78.0-100.0); MONOCYTE 27.1 % (0-12); MPV 10.3 fL (6.0-9.5); NEUTROPHIL 55.5 % (41-80); NRBC 0; PLT 165 K/uL (150-400); RDW 18.2 % (11.5-14.0)
[2021-08-06 07:05] LABS: WBC 2.2 K/uL (4.0-10.5)
[2021-08-06 07:34] LABS: BUN/CREAT RATIO (CALC) 21.5 RATIO; CREATININE 0.65 mg/dL (0.67-1.17); POTASSIUM 3.6 mmol/L (3.5-5.1)
[2021-08-07] MEDS ORDERED: DECADRON6 MG PO (16:45)
--- NOTE | 2021-08-07 17:29 | NUR ---
08/07/21 Mr. Perrin already has 02 at and concentrator at home. [facility] provided a portable tank for transport home.
== END 2021-08-07 18:30 | disposition home or self-care (01) | DRG 808 ==
LOC: FER 21:30 → FMS 07-30 03:54 → FER 07-30 04:55 → FMS 08-07 18:30
PROVIDERS: Allergy & Immunology; Emergency Medicine; Internal Medicine; ADMIT Internal Medicine
PROC: XW033E5 Introduction of Remdesivir Anti-infective into Peripheral Vein, Percutaneous Approach, New Technology Group 5 (ICD-10-PCS; principal; 2021-07-30)
PROC: 3E0333Z Introduction of Anti-inflammatory into Peripheral Vein, Percutaneous Approach (ICD-10-PCS; 2021-07-30)
PROC: 8E0ZXY6 Isolation (ICD-10-PCS; 2021-07-30)
DX: D70.2 Other drug-induced agranulocytosis (principal); U07.1 COVID-19; G93.41 Metabolic encephalopathy; J96.01 Acute respiratory failure with hypoxia; C15.9 Malignant neoplasm of esophagus, unspecified; L97.429 Non-pressure chronic ulcer of left heel and midfoot with unspecified severity; L97.419 Non-pressure chronic ulcer of right heel and midfoot with unspecified severity; T45.1X5A Adverse effect of antineoplastic and immunosuppressive drugs, initial encounter; E11.9 Type 2 diabetes mellitus without complications; I10 Essential (primary) hypertension; E78.5 Hyperlipidemia, unspecified; I25.10 Atherosclerotic heart disease of native coronary artery without angina pectoris; J44.9 Chronic obstructive pulmonary disease, unspecified; E87.6 Hypokalemia; E83.42 Hypomagnesemia; E86.0 Dehydration; N40.0 Benign prostatic hyperplasia without lower urinary tract symptoms; Z87.891 Personal history of nicotine dependence; Z88.0 Allergy status to penicillin; Z88.8 Allergy status to other drugs, medicaments and biological substances; Z86.73 Personal history of transient ischemic attack (TIA), and cerebral infarction without residual deficits; Z83.3 Family history of diabetes mellitus; Z82.49 Family history of ischemic heart disease and other diseases of the circulatory system; Z96.652 Presence of left artificial knee joint; Z98.890 Other specified postprocedural states; D64.9 Anemia, unspecified; T38.0X5A Adverse effect of glucocorticoids and synthetic analogues, initial encounter; L89.152 Pressure ulcer of sacral region, stage 2; E11.621 Type 2 diabetes mellitus with foot ulcer
CPT/HCPCS: 36415; 70450; 71045; 73630; 73720; 80048; 80053; 81003; 82607; 82728; 82746; 82962; 83540; 83550; 83605; 83735; 83880; 84100; 84145; 84484; 85025; 85379; 85610; 85730; 86140; 87040; 87070; 87077; 87186; 87205; 93005; 94010; 94640; A9579; C9399; J1447; J1642; J1650; J1956; J2185; J3370; J3475; J3480; J3490; J7030; J7050; J8540; U0002

== ENCOUNTER 2021-08-08 18:43 | Inpatient (IN) | payer OTHER ==
[~2021-08-08] VITALS: Ht 175.3 cm; Wt 104.3 kg
[~2021-08-08 18:43] MED LIST changes: +ARICEPT 5MG TABL5 MG PO; +DECADRON6 MG PO; +JARDIANCE25 MG PO; +REMERON15 MG PO; +TERBUTALINE PO
[2021-08-08 19:58] LABS: BASOPHIL 0.3 % (0-2); EOSINOPHIL 0 % (0-7); HCT 36.8 % (42.0-52.0); HGB 12.1 g/dl (13.2-18.0); MCH 28.6 pg (25.0-31.0); MCHC 32.9 g/dL (32.0-36.0); MONOCYTE 5.2 % (0-12); MPV 10.3 fL (6.0-9.5); NEUTROPHIL 90.5 % (41-80); NRBC 0; PLT 171 K/uL (150-400); RBC 4.23 M/uL (4.70-6.00); RDW 18.9 % (11.5-14.0)
[2021-08-08 20:45] LABS: BUN/CREAT RATIO (CALC) 24.4 RATIO; CREATININE 0.82 mg/dL (0.67-1.17); POTASSIUM 4.4 mmol/L (3.5-5.1)
[2021-08-09 06:42] LABS: BASOPHIL 0.6 % (0-2); EOSINOPHIL 0 % (0-7); HCT 35.7 % (42.0-52.0); HGB 11.7 g/dl (13.2-18.0); LYMPHOCYTE 5.6 % (15-48); MCH 28.7 pg (25.0-31.0); MCHC 32.8 g/dL (32.0-36.0); MCV 87.7 fL (78.0-100.0); MONOCYTE 6.5 % (0-12); MPV 9.8 fL (6.0-9.5); NEUTROPHIL 82.3 % (41-80); NRBC 0; PLT 155 K/uL (150-400); RBC 4.07 M/uL (4.70-6.00); WBC 3.2 K/uL (4.0-10.5)
[2021-08-09 07:15] LABS: ALBUMIN 2.8 g/dL (3.4-5.0); BILIRUBIN - TOTAL 0.4 mg/dL (0.2-1.0); BUN/CREAT RATIO (CALC) 30.1 RATIO; C-REACTIVE PROTEIN 0.2 mg/dL (<=0.90); CREATININE 0.73 mg/dL (0.67-1.17); GLOBULIN (CALCULATION) 2.9 g/dL; MAGNESIUM 1.4 mg/dL (1.8-2.4); PHOSPHORUS 4.8 mg/dL (2.6-4.7); POTASSIUM 4.3 mmol/L (3.5-5.1); TOTAL PROTEIN 5.7 g/dL (6.4-8.2)
[2021-08-10 07:51] LABS: BASOPHIL 0.3 % (0-2); EOSINOPHIL 0.6 % (0-7); HCT 33.3 % (42.0-52.0); HGB 10.9 g/dl (13.2-18.0); LYMPHOCYTE 8.6 % (15-48); MCH 28.8 pg (25.0-31.0); MCHC 32.7 g/dL (32.0-36.0); MCV 87.9 fL (78.0-100.0); MONOCYTE 9.7 % (0-12); MPV 10.2 fL (6.0-9.5); NEUTROPHIL 78.3 % (41-80); PLT 143 K/uL (150-400); RBC 3.79 M/uL (4.70-6.00); RETICULOCYTE COUNT 1.9 % (1.0-2.0); WBC 3.6 K/uL (4.0-10.5)
[2021-08-10 08:37] LABS: ALBUMIN 2.6 g/dL (3.4-5.0); BILIRUBIN - TOTAL 0.3 mg/dL (0.2-1.0); BUN/CREAT RATIO (CALC) 22.2 RATIO; CREATININE 0.72 mg/dL (0.67-1.17); FOLIC ACID (SERUM) 13.8 ng/mL (8.6-58.9); MAGNESIUM 1.4 mg/dL (1.8-2.4); PHOSPHORUS 2.8 mg/dL (2.6-4.7); POTASSIUM 3.4 mmol/L (3.5-5.1); TOTAL PROTEIN 5.6 g/dL (6.4-8.2)
[2021-08-10 09:00] LABS: BAND 1 % (0-10); EOSINOPHIL(M) 1 % (0-7); LYMPHOCYTE(M) 6 % (15-48); MONOCYTE(M) 4 % (0-12); NEUTROPHILS(M) 88 % (41-80); TOTAL CELL COUNT 100
[2021-08-10 09:01] LABS: NRBC 0
[2021-08-10 09:03] LABS: ANISOCYTOSIS SLIGHT; ECHINOCYTES (BURR CELLS) RARE; MICROCYTOSIS SLIGHT
[2021-08-10 09:05] LABS: PLATELET ESTIMATE NORMAL
[2021-08-10 09:06] LABS: PLATELET MORPHOLOGY NORMAL
[2021-08-10 09:32] LABS: IRON % SATURATION 33.1 %SAT (20-50)
--- NOTE | 2021-08-10 15:46 | NUR ---
08/10/21 Mr. Perrin lives at home with his spouse. He has 02 at 2 L, rw, 3in1, and built-in shower seat. Will monitor for discharge planning needs.
[2021-08-11 06:52] LABS: BASOPHIL 0.2 % (0-2); EOSINOPHIL 0.5 % (0-7); HCT 37.3 % (42.0-52.0); HGB 12.3 g/dl (13.2-18.0); LYMPHOCYTE 7.6 % (15-48); MCH 28.8 pg (25.0-31.0); MCV 87.4 fL (78.0-100.0); MONOCYTE 12.5 % (0-12); MPV 9.9 fL (6.0-9.5); NRBC 0; PLT 154 K/uL (150-400); RBC 4.27 M/uL (4.70-6.00); WBC 4.1 K/uL (4.0-10.5)
[2021-08-11 07:16] LABS: BUN/CREAT RATIO (CALC) 19.7 RATIO; CREATININE 0.71 mg/dL (0.67-1.17); MAGNESIUM 1.7 mg/dL (1.8-2.4); POTASSIUM 3.9 mmol/L (3.5-5.1)
--- NOTE | 2021-08-12 14:35 | NUR ---
ORTHOSTATIC VS: LYING BP 145/82 HR 75, SITTING BP120/72 HR 79, STANDING BP106/63 HR 93, PT WAS SYMPTOMATIC WHEN STANDING AND HAD TO SIT BACK DOWN, C/O DIZZINESS, NOTIFIED
[2021-08-13 05:06] LABS: BASOPHIL 0.2 % (0-2); EOSINOPHIL 1.4 % (0-7); HCT 36.3 % (42.0-52.0); HGB 11.8 g/dl (13.2-18.0); LYMPHOCYTE 8.9 % (15-48); MCH 28.8 pg (25.0-31.0); MCHC 32.5 g/dL (32.0-36.0); MCV 88.5 fL (78.0-100.0); MONOCYTE 12.8 % (0-12); MPV 9.8 fL (6.0-9.5); NEUTROPHIL 75.6 % (41-80); NRBC 0; PLT 131 K/uL (150-400); RDW 19.4 % (11.5-14.0); WBC 4.4 K/uL (4.0-10.5)
[2021-08-13 05:24] LABS: BUN/CREAT RATIO (CALC) 22.4 RATIO; CREATININE 0.76 mg/dL (0.67-1.17); MAGNESIUM 1.6 mg/dL (1.8-2.4); POTASSIUM 3.9 mmol/L (3.5-5.1)
[2021-08-14 05:28] LABS: BASOPHIL 0.2 % (0-2); EOSINOPHIL 1.3 % (0-7); HGB 11.9 g/dl (13.2-18.0); LYMPHOCYTE 7.8 % (15-48); MCHC 33.1 g/dL (32.0-36.0); MCV 87.8 fL (78.0-100.0); MONOCYTE 17.6 % (0-12); MPV 9.9 fL (6.0-9.5); NEUTROPHIL 72.4 % (41-80); NRBC 0; PLT 135 K/uL (150-400); RDW 19.4 % (11.5-14.0); WBC 4.5 K/uL (4.0-10.5)
[2021-08-14 05:44] LABS: BUN/CREAT RATIO (CALC) 19.7 RATIO; CREATININE 0.71 mg/dL (0.67-1.17); MAGNESIUM 1.5 mg/dL (1.8-2.4); PHOSPHORUS 2.9 mg/dL (2.6-4.7); POTASSIUM 3.9 mmol/L (3.5-5.1)
[2021-08-15 05:43] LABS: BUN/CREAT RATIO (CALC) 16.4 RATIO; CREATININE 0.73 mg/dL (0.67-1.17); MAGNESIUM 1.9 mg/dL (1.8-2.4); POTASSIUM 3.4 mmol/L (3.5-5.1)
[2021-08-15] MEDS ORDERED: ATROVENT HFA12.9 GM INH (10:12)
[2021-08-15] MEDS ORDERED: PROAMATINE5 MG PO (10:12)
--- NOTE | 2021-08-15 12:45 | NUR ---
08/15/21 Mr. Perrin declined services.
== END 2021-08-15 12:56 | disposition home or self-care (01) | DRG 177 ==
LOC: FER 18:43 → FMS 08-09 01:52
PROVIDERS: Internal Medicine; Nurse Practitioner; ADMIT Internal Medicine
PROC: XW033E5 Introduction of Remdesivir Anti-infective into Peripheral Vein, Percutaneous Approach, New Technology Group 5 (ICD-10-PCS; principal; 2021-08-09)
PROC: XW0DXM6 Introduction of Baricitinib into Mouth and Pharynx, External Approach, New Technology Group 6 (ICD-10-PCS; 2021-08-09)
PROC: 8E0ZXY6 Isolation (ICD-10-PCS; 2021-08-09)
DX: U07.1 COVID-19 (principal); J12.82 Pneumonia due to coronavirus disease 2019; J44.1 Chronic obstructive pulmonary disease with (acute) exacerbation; J44.0 Chronic obstructive pulmonary disease with (acute) lower respiratory infection; J96.11 Chronic respiratory failure with hypoxia; I50.32 Chronic diastolic (congestive) heart failure; I95.1 Orthostatic hypotension; E87.6 Hypokalemia; E83.42 Hypomagnesemia; I25.10 Atherosclerotic heart disease of native coronary artery without angina pectoris; I11.0 Hypertensive heart disease with heart failure; E11.9 Type 2 diabetes mellitus without complications; N40.0 Benign prostatic hyperplasia without lower urinary tract symptoms; E78.5 Hyperlipidemia, unspecified; R53.81 Other malaise; Z96.652 Presence of left artificial knee joint; Z99.81 Dependence on supplemental oxygen; Z86.73 Personal history of transient ischemic attack (TIA), and cerebral infarction without residual deficits; Z85.01 Personal history of malignant neoplasm of esophagus; Z88.0 Allergy status to penicillin; Z88.5 Allergy status to narcotic agent; Z88.8 Allergy status to other drugs, medicaments and biological substances; Z91.013 Allergy to seafood; Z79.02 Long term (current) use of antithrombotics/antiplatelets; Z79.84 Long term (current) use of oral hypoglycemic drugs; Z79.899 Other long term (current) drug therapy; Z90.49 Acquired absence of other specified parts of digestive tract; Z87.891 Personal history of nicotine dependence; Z86.14 Personal history of Methicillin resistant Staphylococcus aureus infection; Z92.21 Personal history of antineoplastic chemotherapy; Z92.3 Personal history of irradiation
CPT/HCPCS: 36415; 36600; 71045; 80048; 80053; 82607; 82728; 82746; 82803; 82962; 83036; 83540; 83550; 83605; 83615; 83735; 83880; 84100; 84145; 84484; 85025; 86140; 93005; 93880; 94010; 94640; 94664; 94760; 94762; 97162; 97166; 97530-GP; 97535; C9399; J1100; J1642; J1650; J2405; J3475; J7030; J7050; J8540